=== PATIENT | male | born 1950 | race Hispanic/Latino ===

== ENCOUNTER 2018-09-12 07:29 | Observation (INO) | payer MEDICARE, OTHER ==
[2018-08-30 11:18] LABS: BASOPHILS # (AUTO) 0.1 (0.0-0.1); BASOPHILS % 0.9 % (0.0-1.0); EOSINOPHILS # (AUTO) 0.2 (0.0-0.4); EOSINOPHILS % 3.9 % (0.0-6.0); HEMATOCRIT 42.5 % (38.2-49.6); LYMPHOCYTES # (AUTO) 1.8 (1.0-3.2); LYMPHOCYTES % 31.9 % (18.0-39.1); MEAN CORPUSCULAR HEMOGLOBIN 29.8 pg (28-32); MEAN CORPUSCULAR HGB CONC 32.9 g/dL (31-35); MEAN CORPUSCULAR VOLUME 90.4 fL (81-99); MONOCYTES # (AUTO) 0.4 (0.2-0.8); MONOCYTES % 6.3 % (4.4-11.3); NEUTROPHILS # (AUTO) 3.2 (2.1-6.9); NEUTROPHILS % 56.6 % (38.7-80.0); PLATELET COUNT 266 x10e3/uL (140-360)
[2018-08-30 11:30] LABS: ANION GAP 8.9 mmol/L (8-16); BLOOD UREA NITROGEN 12 mg/dL (7-26); BUN/CREATININE RATIO 16 (6-25); CALCIUM 9.3 mg/dL (8.4-10.2); CARBON DIOXIDE 27 mmol/L (22-29); CHLORIDE 106 mmol/L (98-107); CREATININE, SERUM 0.74 mg/dL (0.72-1.25); EST GLOMERULAR FILTRATION RATE > 60 ML/MIN (60-); GLUCOSE 82 mg/dL (74-118); POTASSIUM 3.9 mmol/L (3.5-5.1); SODIUM 138 mmol/L (136-145)
--- NOTE | 2018-08-30 13:05 | Diagnostic Imaging Report ---
Chest, 2 views, 08/30/2018. History: Preop, prostate surgery. Comparison: None available. Findings: The cardiomediastinal silhouette and pulmonary vasculature are within normal limits. The lungs are clear without evidence of consolidation or pleural effusion. There are no acute osseous or soft tissue abnormalities. Impression: No acute cardiopulmonary abnormality. Signed by: Maykel Beach on 08/30/2018 1:02 PM
[~2018-09-12] VITALS: Ht 170.2 cm; Wt 86.2 kg
[~2018-09-12 07:29] MED LIST: MICARDIS40 MG PO; OMEPRAZOLE40 MG PO; SIMVASTATIN20 MG PO
--- OUTSIDE RECORDS SUMMARY | 2018-09-12 07:37 | XMS REPORT | Clinical Summary ---
Author Author [facility] Organization [facility] Address Unknown Phone Unavailable Care Team Providers Care Pie Icer Machine Name Role Phone Manoj Clemens MD PCP Allergies Not on File Medications Not on file Active Problems Not on file Encounters Care Team Description Date Type Specialty Seun Perez MD Enlarged prostate with urinary obstruction (Primary Dx); Detrusor instability of bladder 08/02/2018 Transcribe Access Orders after 09/11/2017 Social History Date Tobacco Use Types Packs/Day Years Used Never Assessed Sex Assigned at Date Recorded Not on file Industry Job Start Date Occupation Not on file Not on file Not on file Travel End Travel History Travel Start No recent travel history available. Last Filed Vital Signs Not on file Plan of Treatment Health Maintenance Due Date Last Done Comments COLON CANCER SCREENING 11/28/1999 SHINGLES VACCINES (#1) 11/28/1999 65+ PNEUMOCOCCAL VACCINE 2014 (1 of 2 - PCV13) PNEUMOCOCCAL 2014 POLYSACCHARIDE VACCINE AGE 65 AND OVER INFLUENZA VACCINE 11/08/2018 Procedures Comments Procedure Name Priority Date/Time Associated Diagnosis US PROSTATE Routine 08/08/2018 Enlarged prostate with 4:33 PM CDT urinary obstruction Detrusor instability of bladder after 09/11/2017 Results * US Prostate (08/08/2018 4:33 PM CDT) Specimen Narrative Performed At EXAMINATION:US PROSTATE [facility] CLINICAL HISTORY:N40.1 Benign prostatic hyperplasia with lower urinary tract symptoms, N13.8 Other obstructive and reflux uropathy, ENLARGED PROSTATE COMPARISON:None. TECHNIQUE: Transrectal sonography of the prostate gland is performed. IMPRESSION: 1.The prostate gland is mildly enlarged at 5.7 x 5.2 x 3.8 cm. 2.There is some heterogeneity a nonspecific hypoechogenicity of the central prostate gland, with a few small calcifications. 3.The seminal vesicles are symmetric and appear normal. [id number] Procedure Note Hm Interface, Radiology Results Incoming - 08/08/2018 4:44 PM CDT EXAMINATION: US PROSTATE CLINICAL HISTORY: N40.1 Benign prostatic hyperplasia with lower urinary tract symptoms, N13.8 Other obstructive and reflux uropathy, ENLARGED PROSTATE COMPARISON: None. TECHNIQUE: Transrectal sonography of the prostate gland is performed. IMPRESSION: 1. The prostate gland is mildly enlarged at 5.7 x 5.2 x 3.8 cm. 2. There is some heterogeneity a nonspecific hypoechogenicity of the central prostate gland, with a few small calcifications. 3. The seminal vesicles are symmetric and appear normal. [id number] Performing Organization Address City/State/Zipcode Phone Number [facility] [address] [place] [address] after 09/11/2017 Insurance Type Payer Benefit Subscriber ID Effective Phone Address Plan / Dates Group O [facility] MEDICARE [facility] DUAL xxxxxxxxx 2017-P COMPLETE resent [facility] Advance Directives Patient has advance care planning documents on file. For more information, laila liz contact: Linden Matthews [address] [place] [address]
--- OUTSIDE RECORDS SUMMARY | 2018-09-12 07:37 | XMS REPORT ---
Author Author Admin, [place] Organization [facility] Address Unknown Phone Unavailable Allergies, Adverse Reactions, Alerts Allergy Name Reaction Description Start Date Severity Status Provider PCN severe rash Severe Active Sabrina BENOITP Conditions or Problems Problem Name Problem Code Onset Date Status Entry Date Provider Comment Standard Description Annotate Constipation Unspecified 564.00 Active Zina Antonio Pariani DO Constipation, unspecified Hemorrhoids 455.6 Active Zina Antonio Pariani DO Unspecified hemorrhoids without mention of complication Abnormal ejaculation 608.89 Active Zina Antonio Pariani DO Other specified disorders of male genital organs Nocturia 788.43 Active Zina Antonio Pariani DO Nocturia 02/23 Prostate Exam Essential hypertension 401.1 Active Sabrina BENOITP Benign essential hypertension Hyperlipidemia 272.4 Active Sabrina BENOITP Other and unspecified hyperlipidemia Nasal Congestion 478.19 Active Sabrina HECK Other disease of nasal cavity and sinuses Overweight 278.02 Active Sabrina HECK Overweight Medication List Medication Instructions Start Date Stop Date Generic Name NDC Status Provider Patient Instruction POLYETHYLENE GLYCOL 3350 ORAL PACKET Take 17 g (1 dose) once daily mixed with 4- 8 ounces of water for 1-4 days As Needed for constipation for 1-4 days POLYETHYLENE GLYCOL 3350 42856786248 Active Zina Antonio Pariani DO Active FLOMAX 0.4 MG ORAL CAPSULE take 1 tab By Mouth Every day TAMSULOSIN HCL 40678393869 Active Zina Antonio Pariani DO Active LOSARTAN POTASSIUM 50 MG ORAL TABLET take 1 tab By Mouth Every day LOSARTAN POTASSIUM 77228554969 Active Zina Mercer DO Active BLOOD PRESSURE KIT Check blood pressure twice daily. BLOOD PRESSURE MONITORING 60841548098 Active Sabrina BENOITP Active FLONASE ALLERGY RELIEF 50 MCG/ACT NASAL SUSPENSION 2 sprays each nostril every day FLUTICASONE PROPIONATE 63695165153 Active Zina Mercer DO Active SIMVASTATIN 10 MG ORAL TABLET 1 tablet by mouth once daily SIMVASTATIN 26623623825 Active Zina Mercer DO Active ZYRTEC ALLERGY 10 MG ORAL TABLET 1 by mouth every day CETIRIZINE HCL 65048738737 Active Zina Mercer DO Active HYDROCHLOROTHIAZIDE 12.5 MG ORAL TABLET 1 tablet by mouth daily HYDROCHLOROTHIAZIDE 12.5 MG ORAL TABLET 392739 HYDROCHLOROTHIAZIDE Inactive LISINOPRIL 40 MG ORAL TABLET 1 tablet by mouth daily LISINOPRIL 40 MG ORAL TABLET 991799 LISINOPRIL Inactive HYDROCHLOROTHIAZIDE 12.5 MG ORAL TABLET 1 tablet by mouth daily HYDROCHLOROTHIAZIDE 96802170967 No Longer Active Zina Mercer DO Active LISINOPRIL 40 MG ORAL TABLET 1 tablet by mouth daily LISINOPRIL 46059570463 No Longer Active Zina Mercer DO Active Immunizations Vaccine Administration Date Value Standard Description influenza immunization (Flu Vax) has been administered given influenza virus vaccine, unspecified formulation Diagnostic Results Date Name Value Unit Range Description Append: Acute Visit - Urinalysis pH, urine, semiquantitative 5.0 Lab Report: CBC With Differential/Platelet, Comp. Metabolic Panel (14), ... - Hematology lymphocyte count, blood, automated 1.8 X10E3/UL 10*3/mm3 0.7-3.1 Append: Acute Visit - Urinalysis bilirubin, urine negative Lab Report: CBC With Differential/Platelet, Comp. Metabolic Panel (14), ... - Chemistry urea nitrogen, blood 13 mg/dL 8-27 creatinine, serum 0.80 mg/dL 0.76-1.27 chloride, serum 102 mmol/L 96-106 Lab Report: CBC With Differential/Platelet, Comp. Metabolic Panel (14), ... - Hematology mean corpuscular volume, RBC 90 fL 79-97 Lab Report: CBC With Differential/Platelet, Comp. Metabolic Panel (14), ... - Chemistry triglyceride, serum, fasting 147 mg/dL 0-149 Lab Report: CBC With Differential/Platelet, Comp. Metabolic Panel (14), ... - Hematology erythrocyte (RBC) count 4.90 X10E6/UL 10*6/mm3 4.14-5.80 Lab Report: CBC With Differential/Platelet, Comp. Metabolic Panel (14), ... - Chemistry Estimated Glomerular Filtration Rate (calc) 93 mL/min/1.73m2 >59 Lab Report: CBC With Differential/Platelet, Comp. Metabolic Panel (14), ... - Hematology platelet count 282 X10E3/UL 10*3/mm3 150-379 Append: Acute Visit - Urinalysis appearance, urine clear Lab Report: CBC With Differential/Platelet, Comp. Metabolic Panel (14), ... - Hematology red blood cell distribution width 12.8 % 12.3-15.4 Lab Report: CBC With Differential/Platelet, Comp. Metabolic Panel (14), ... - Chemistry protein, total, serum 6.5 g/dL 6.0-8.5 HDL cholesterol, serum 53 mg/dL >39 Append: Acute Visit - Urinalysis glucose, urine, semiquantitative negative Lab Report: CBC With Differential/Platelet, Comp. Metabolic Panel (14), ... - Chemistry albumin/globulin ratio, serum 2.0 1.1-2.5 Lab Report: CBC With Differential/Platelet, Comp. Metabolic Panel (14), ... - Hematology eosinophils as percent of blood leukocytes 2 % Lab Report: CBC With Differential/Platelet, Comp. Metabolic Panel (14), ... - Chemistry Absolute Neutrophils 2.3 X10E3/UL 10*3/uL 1.4-7.0 microalbumin/creatinine ratio, urine <1.6 mg/g creat ug/mg 0.0-30.0 Lab Report: CBC With Differential/Platelet, Comp. Metabolic Panel (14), ... - Hematology basophil count, absolute 0.0 x10E3/uL 0.0-0.2 Lab Report: CBC With Differential/Platelet, Comp. Metabolic Panel (14), ... - Chemistry alanine aminotransferase (SGPT), serum 16 U/L 0-44 LDL cholesterol, serum 102 mg/dL 0-99 Append: Acute Visit - Urinalysis nitrite, urine, semiquantitative negative Lab Report: CBC With Differential/Platelet, Comp. Metabolic Panel (14), ... - Hematology monocytes as percent of blood leukocytes 6 % Lab Report: CBC With Differential/Platelet, Comp. Metabolic Panel (14), ... - Chemistry cholesterol, serum 184 mg/dL 100-199 Lab Report: CBC With Differential/Platelet, Comp. Metabolic Panel (14), ... - Hematology mean corpuscular hemoglobin concentration, RBC 33.6 G/DL % 31.5-35.7 Append: Acute Visit - Urinalysis leukocyte esterase, urine, by dipstick negative Lab Report: CBC With Differential/Platelet, Comp. Metabolic Panel (14), ... - Hematology hemoglobin, blood 14.8 g/dL 12.6-17.7 leukocyte count, blood 4.4 X10E3/UL 10*3/mm3 3.4-10.8 Append: Acute Visit - Urinalysis protein, urine, semiquantitative (dipstick) negative Lab Report: CBC With Differential/Platelet, Comp. Metabolic Panel (14), ... - Hematology hematocrit, blood 44.0 % 37.5-51.0 Lab Report: CBC With Differential/Platelet, Comp. Metabolic Panel (14), ... - Chemistry prostate specific antigen 0.2 ng/mL 0.0-4.0 globulin, serum 2.2 1.5-4.5 thyroid stimulating hormone, serum 3.430 u[iU]/mL 0.450-4.500 albumin, serum 4.3 g/dL 3.6-4.8 very low density lipoproteins 29 mg/dL 5-40 Append: Acute Visit - Urinalysis urobilinogen, urine, semiquantitative (dipstick) negative Lab Report: CBC With Differential/Platelet, Comp. Metabolic Panel (14), ... - Chemistry calcium, serum 9.2 mg/dL 8.6-10.2 Lab Report: CBC With Differential/Platelet, Comp. Metabolic Panel (14), ... - Hematology basophils as percent of blood leukocytes 1 % Lab Report: CBC With Differential/Platelet, Comp. Metabolic Panel (14), ... - Urinalysis microalbumin/total urine volume <3.0 ug/mL mg/L 0.0-17.0 Lab Report: CBC With Differential/Platelet, Comp. Metabolic Panel (14), ... - Hematology monocyte count, blood, automated 0.3 X10E3/UL 10*3/uL 0.1-0.9 Lab Report: CBC With Differential/Platelet, Comp. Metabolic Panel (14), ... - Chemistry immature granulocytes, percentage of total cells, blood 0 % urea nitrogen/creatinine ratio, serum 16 10-22 Lab Report: CBC With Differential/Platelet, Comp. Metabolic Panel (14), ... - Genetics/fertility eGFR if 108 mL/min/1.73m2 >59 Lab Report: CBC With Differential/Platelet, Comp. Metabolic Panel (14), ... - Hematology lymphocytes as percent of blood leukocytes 40 % Lab Report: CBC With Differential/Platelet, Comp. Metabolic Panel (14), ... - Chemistry carbon dioxide, venous blood 21 mmol/L 18-29 Lab Report: CBC With Differential/Platelet, Comp. Metabolic Panel (14), ... - Lab chlamydia DNA probe Negative Negative Lab Report: CBC With Differential/Platelet, Comp. Metabolic Panel (14), ... - Chemistry sodium, serum 141 mmol/L 134-144 Lab Report: CBC With Differential/Platelet, Comp. Metabolic Panel (14), ... - Microbiology Neisseria gonorrhoeae DNA probe Negative Negative Lab Report: CBC With Differential/Platelet, Comp. Metabolic Panel (14), ... - Chemistry hemoglobin A1C, blood, as % of total hemoglobin 5.5 % 4.8-5.6 alkaline phosphatase, serum 67 U/L 39-117 Append: Acute Visit - Urinalysis ketones, urine, by test strip negative Lab Report: CBC With Differential/Platelet, Comp. Metabolic Panel (14), ... - Hematology Eosinophil Absolute Count 0.1 X10E3/UL 10*3/uL 0.0-0.4 Append: Acute Visit - Urinalysis specific gravity, urine 1.025 Lab Report: CBC With Differential/Platelet, Comp. Metabolic Panel (14), ... - Hematology mean corpuscular hemoglobin, RBC 30.2 pg 26.6-33.0 Lab Report: CBC With Differential/Platelet, Comp. Metabolic Panel (14), ... - Chemistry creatinine, random, urine 191.8 mg/dL 22.0-328.0 bilirubin, serum, total 0.8 mg/dL 0.0-1.2 Lab Report: CBC With Differential/Platelet, Comp. Metabolic Panel (14), ... - Hematology neutrophils as percent of blood leukocytes 51 % Append: Acute Visit - Urinalysis blood in urine (hemoglobin) by dipstick negative Lab Report: CBC With Differential/Platelet, Comp. Metabolic Panel (14), ... - Chemistry blood glucose, random 96 mg/dL 65-99 potassium, serum 4.4 mmol/L 3.5-5.2 aspartate aminotransferase (SGOT), serum 16 U/L 0-40 Append: Acute Visit - Urinalysis urine color yellow Encounters Date Encounter Provider Code Facility 11:00:56 WEED SCIENCE RESEARCH TECHNICIAN Ofc Vst, Est Level IV Zina Mercer DO CPT-05902 [facility] 22:07:30 WEED SCIENCE RESEARCH TECHNICIAN New Patient Comprehensive - 35593 Zina Mercer DO CPT-12789 [facility] 11:06:17 CDT Est Patient Exp Problem - [address] [facility] [place]-[id number] [facility] 12:59:36 CDT New Patient Detailed - 32195 Sabrina Cade [facility] CPT-21094 [facility] Procedures Code Procedure Name Date Entry Date Standard Description CPT-23990 Urinalysis - Dip only - In House 15:45:04 WE[employer] SCIENCE RESEARCH TECHNICIAN CPT-67260 Influenza - Adult - Injection 12:59:43 CDT
--- OUTSIDE RECORDS SUMMARY | 2018-09-12 07:38 | XMS REPORT ---
Author Author [facility] Address Unknown Phone Unavailable Care Team Providers Care Programmer Analyst Consultant Name Role Phone Lopez LOPEZ Unavailable Unavailable Problems This patient has no known problems. Allergies, Adverse Reactions, Alerts This patient has no known allergies or adverse reactions. Medications This patient has no known medications. Results Test Description Test Time Test Comments Text Results Atomic Results Result Comments CHEST 2 VIEWS 2018-08-30 13:01:00 [place] [address] Patient Name: SYD ALMAGUER MR #: [id number] : 1950 Age/Sex: 67/M Req #: [id number] Adm Physician: Ordered by: MANAS LOPEZ MD Report #: [id number] Location: OR Room/Bed: Procedure: [id number] DX/CHEST 2 VIEWS Exam Date: 08/30/18 Exam Time: 1124 REPORT STATUS: Signed Chest, 2 views, 08/30/2018. History: Preop, prostate surgery. Comparison: None available. Findings: The cardiomediastinal silhouette and pulmonary vasculature are within normal limits. The lungs are clear without evidence of consolidation or pleural effusion. There are no acute osseous or soft tissue abnormalities. Impression: No acute cardiopulmonary abnormality. Signed by: Josef Beach on 08/30/2018 1:02 PM Dictated By: JOSEF BEACH MD 130 Transcribed By: DESTINEE on 08/30/181301 COPY TO: MANAS LOPEZ MD
[2018-09-12] MEDS ORDERED: HYOSCYAMINE 0.125 MG TAB ONE (07:41)
[2018-09-12] MEDS ORDERED: LEVOFLOXACIN 500MG/D5W 100ML 100 ML IV ONE (07:42)
[2018-09-12] MEDS ORDERED: NEXIUM40 MG PO (07:54)
[2018-09-12] MEDS ORDERED: MONTELUKAST SOD10 MG PO (07:54)
[2018-09-12] MEDS ORDERED: SODIUM CHLORIDE 0.9% 1000ML 1,000 ML ONE ×2 (12:18→12:48)
[2018-09-12] MEDS ORDERED: FUROSEMIDE INJ 10 MG/ML 4 ML VIAL ONE (12:19)
[2018-09-12] MEDS ORDERED: SODIUM CHLORIDE 0.9% 250ML 500 ML ONE (12:20)
--- OUTSIDE RECORDS SUMMARY | 2018-09-12 12:34 | XMS REPORT | Clinical Summary ---
Author Author [facility] Organization [facility] Address Unknown Phone Unavailable Care Team Providers Care Tare Worker Name Role Phone Manoj Clemens MD PCP [...] seminal vesicles are symmetric and appear normal. [id number] Procedure Note Hm Interface, Radiology Results Incoming [...] seminal vesicles are symmetric and appear normal. [id number] Performing Organization Address City/State/Zipcode Phone Number [facility] [address] [place] [address] after 09/11/2017 Insurance Type Payer Benefit Subscriber ID Effective Phone Address Plan / Dates Group O [facility] MEDICARE [facility] DUAL xxxxxxxxx 2017-P COMPLETE resent [facility] Advance Directives Patient has advance care planning documents on file. For more information, laila liz contact: Linden Matthews [address] [place] [address]
[2018-09-12 13:50] VITALS: BP 135/76
[2018-09-12 14:00] VITALS: BP 135/76
[2018-09-12] MEDS ORDERED: HYDROMORPHONE 1MG/1ML INJ IV PRN (14:00)
[2018-09-12] MEDS ORDERED: ONDANSETRON HCL INJ 2MG/ML 2ML 2 MG/ML VIAL IV PRN (14:00)
--- NOTE | 2018-09-12 14:00 | NUR ---
PATIENT ARRIVED TO ROOM 297 AROUND 1327. PATIENT IS IN STABLE CONDITION. DENIES PAIN OR DISCOMFORT. ORIENTED TO ROOM AND POLICIES. FAMILY AT BEDSIDE. ADMISSION HISTORY AND INITIAL PHYSICAL ASSESSMENT COMPLETED AND DOCUMENTED. CALL LIGHT WITHIN REACH. BED IN THE LOWEST POSITION.
[2018-09-12] MEDS ORDERED: HYDROMORPHONE 2MG/ML 2 MG/ML ML IV PRN (14:15)
[2018-09-12 15:46] VITALS: BP 124/76
[2018-09-12] MEDS ORDERED: PROPOFOL IV EMULSION 10 MG/ML 20 ML VIAL ONE (18:14)
[2018-09-12] MEDS ORDERED: LIDOCAINE HCL 2% LOCAL INJ 5 ML SDV VIAL INJ ONE (18:14)
[2018-09-12] MEDS ORDERED: SEVOFLURANE INHAL SOLN 250 ML PEN BTL ONE (18:14)
[2018-09-12] MEDS ORDERED: DEXAMETHASONE SOD PHOS INJ 4 MG/ML VIAL ONE (18:14)
[2018-09-12] MEDS ORDERED: ONDANSETRON HCL INJ 2MG/ML 2ML 2 MG/ML VIAL ONE (18:14)
[2018-09-12] MEDS: SODIUM CHLORIDE 0.9% 1000ML 1,000 ML IV SCH (18:50)
--- NOTE | 2018-09-12 19:00 | NUR ---
patient received awake, alert, lying quietly in bed. no c/o pain noted. CBI continues per orders. urine light pink in color at this time. pm assessment complete. family noted at the bedside. patient instructed to call for assistance when needed.
--- NOTE | 2018-09-12 19:04 | NUR ---
REPORT GIVEN TO ONCOMING NURSE, WALKING ROUNDS DONE. PATIENT IS IN STABLE CONDITION. DENIES PAIN OR DISCOMFORT. SON AT BEDSIDE. CALL LIGHT WITHIN REACH. BED IN THE LOWEST POSITION.
[2018-09-12] MEDS ORDERED: FENTANYL CITRATE/PF 100MCG/2 ML INJ ONE (19:07)
[2018-09-12] MEDS ORDERED: MIDAZOLAM HCL 2 MG/2 ML VIAL ONE (19:07)
[2018-09-12 19:30] VITALS: BP 107/57
[2018-09-12 20:00] VITALS: BP 107/57
[2018-09-12] MEDS ORDERED: SIMVASTATIN 20 MG TAB PO SCH (21:00)
[2018-09-13 00:24] VITALS: BP 115/58
[2018-09-13] MEDS: SODIUM CHLORIDE 0.9% 1000ML 1,000 ML IV SCH (03:00)
[2018-09-13 04:11] VITALS: BP 105/59
[2018-09-13 05:46] LABS: BASOPHILS % 0.2 % (0.0-1.0); EOSINOPHILS % 0.4 % (0.0-6.0); HEMATOCRIT 39.8 % (38.2-49.6); HEMOGLOBIN 13.2 g/dL (14.0-18.0); LYMPHOCYTES # (AUTO) 1.5 (1.0-3.2); LYMPHOCYTES % 14.2 % (18.0-39.1); MEAN CORPUSCULAR HEMOGLOBIN 29.7 pg (28-32); MEAN CORPUSCULAR HGB CONC 33.2 g/dL (31-35); MEAN CORPUSCULAR VOLUME 89.6 fL (81-99); MONOCYTES # (AUTO) 0.7 (0.2-0.8); MONOCYTES % 6.2 % (4.4-11.3); NEUTROPHILS # (AUTO) 8.2 (2.1-6.9); NEUTROPHILS % 78.6 % (38.7-80.0); PLATELET COUNT 229 x10e3/uL (140-360); RED BLOOD COUNT 4.44 x10e6/uL (4.3-5.7); RED CELL DISTRIBUTION WIDTH 11.9 % (11.7-14.4)
[2018-09-13 06:35] LABS: ANION GAP 10.5 mmol/L (8-16); BLOOD UREA NITROGEN 11 mg/dL (7-26); BUN/CREATININE RATIO 16 (6-25); CALCIUM 8.6 mg/dL (8.4-10.2); CARBON DIOXIDE 22 mmol/L (22-29); CHLORIDE 108 mmol/L (98-107); CREATININE, SERUM 0.67 mg/dL (0.72-1.25); EST GLOMERULAR FILTRATION RATE > 60 ML/MIN (60-); GLUCOSE 103 mg/dL (74-118); POTASSIUM 3.5 mmol/L (3.5-5.1); SODIUM 137 mmol/L (136-145)
[2018-09-13] MEDS ORDERED: PANTOPRAZOLE SOD 40 MG TABEC PO SCH (07:30)
[2018-09-13 07:44] VITALS: BP 122/71
[2018-09-13 08:12] VITALS: BP 122/71
[2018-09-13] MEDS ORDERED: TELMISARTAN 40 MG TAB PO SCH (09:00)
[2018-09-13] MEDS ORDERED: MONTELUKAST SODIUM 10 MG TAB PO SCH (09:00)
--- NOTE | 2018-09-13 10:03 | Operative Report ---
DATE OF PROCEDURE: 09/12/2018 SURGEON: Seun Perez MD PREOPERATIVE DIAGNOSIS: BPH. POSTOPERATIVE DIAGNOSIS: BPH. OPERATION: 1. Cystourethroscopy. 2. TURP, laser XPS. ANESTHESIA: General. INDICATIONS: Mr. Easton is a 67-year-old male, who presented with a chief complaint of lower urinary tract obstructive symptoms. Rectal exam showed an enlarged prostate gland about 50 g. His PSA was normal. His AUA score was 23. PROCEDURE IN DETAIL: This patient was placed on the table in the lithotomy position and was prepped and draped in a sterile manner after satisfactory anesthesia. A #23-Urdu cystoresectoscope was used and cystourethroscopy was performed and confirmed the previous cystoscopic findings of a trilobar occlusive prostate gland with moderately trabeculated bladder. The XPS laser scope generator was then started starting at 120 mckee vaporization level and 40 mckee coagulation. Vaporization of the median lobe was done flattening the median lobe down to the level of the floor of the prostatic fossa. Resection of the prostate was then started starting from 1 o'clock to 5 o'clock starting at the bladder neck to just proximal to the verumontanum and down to the capsular fibers. Hemostasis was obtained all through and was very adequate. Vaporization was then started starting from 11 to 7 o'clock again starting at the bladder neck to just proximal to the verumontanum and down to the capsular fibers. Again, hemostasis was obtained and was very adequate. Finally, the anterior tissue was vaporized. At the termination of the procedure, it was noted that the bladder mucosa, both ureteral orifices, the external sphincter were intact without laser energy damage. The laser scope generator was shut down. The cystoresectoscope was removed and a #22-Urdu Penaloza catheter was placed on mild traction. Estimated blood loss was 0 mL. Seun Perez MD MA/SALIMA /[id number]
--- NOTE | 2018-09-13 10:20 | NUR ---
CANNON DCD ORDERED BY PHYSICIAN, TIP INTACT, PATIENT TOLERATED IT WELL.
[2018-09-13] MEDS ORDERED: LEVOFLOXACIN 500MG/D5W 100ML 100 ML IV SCH (11:00)
[2018-09-13 11:11] VITALS: BP 115/68
--- NOTE | 2018-09-13 12:20 | NUR ---
PATIENT VOIDED 600CC OF PINK TINGED URINE.
[2018-09-13] MEDS ORDERED: ONDANSETRON HCL 4 MG ORAL DISINTEGRATING TAB PO PRN (13:00)
--- NOTE | 2018-09-13 13:00 | NUR ---
RECEIVED DC ORDER FROM MD. PATIENT IS IN STABLE CONDITION. DENIES PAIN OR DISCOMFORT. DISCHARGE TEACHING PROVIDED TO PATIENT AND SON, THEY BOTH VERBALIZED UNDERSTANDING. DISCHARGE FOLDER WITH DISCHARGE PAPERWORK/PRESCRIPTIONS AND PERSONAL ITEMS ON HAND. PATIENT ACCOMPANIED TO PRIVATE AUTO VIA WHEELCHAIR BY STAFF.
== END 2018-09-13 13:00 | disposition home or self-care (01) ==
LOC: OR 07:29 → PACU V 12:25 → MED/SURG3 13:27
PROVIDERS: ADMIT Specialist; ATTEND Specialist
DX: N40.1 Benign prostatic hyperplasia with lower urinary tract symptoms (principal); N13.8 Other obstructive and reflux uropathy
CPT/HCPCS: 36415 ×2; 52648; 71046; 80048 ×2; 85025 ×2; 93005; C1758; G0378 ×2; J1100; J1940; J1956 ×2; J2001; J2250; J2405; J2704; J7030 ×2; J7050; S0164